=== PATIENT | female | born 1930 | race African-American/Black ===

== ENCOUNTER 2017-06-18 16:38 | Outpatient (CLI) | payer MEDICARE ==
--- NOTE | 2017-06-18 17:23 | RAD ---
TWO VIEWS OF THE NECK 06/18/17 COMPARISON: None. HISTORY: Airway obstruction when neck bends. FINDINGS: The airway appears patent on the frontal and lateral imaging. There is significant degenerative persaud ge involving the cervical spine especially the C5-6 and C6-7 levels with disc space narrowing, degen erative end plate change and anterior osteophyte formation. No prevertebral soft tissue swelling. No radiopaque foreign body seen. IMPRESSION: No acute findings. Cervical spine degenerative changes. If symptoms persists, perhaps a CT examinati on of the neck with IV contrast would be beneficial. POS: [facility]
[2017-06-18 17:27] LABS: #Basophils 0.1 thou/uL (0.0-0.2); #Eosinphils 0.1 thou/uL (0.0-0.7); #Lymphocytes 2.1 thou/uL (1.20-3.40); #Monocytes 0.5 thou/uL (0.11-0.59); #Neutrophils 2.6 thou/uL (1.40-6.50); %Basophils 1.1 % (0.0-1.0); %Eosinophils 1.7 % (0.0-10.0); %Lymphocytes 39.1 % (21.0-51.0); %Monocytes 9.5 % (0.0-10.0); %Neutrophils 48.7 % (42.0-75.0); Hemoglobin 9.2 g/dL (12.0-16.0); Mean Corpuscular HGB CONC 29.8 g/dL (32.0-36.0); Mean Corpuscular Hemoglobin 24.4 pg (27.0-31.0); Platelet Count 271 thou/uL (130-400); RBC Distribution Width 14.7 % (11.5-14.5); Red Blood Cell (RBC) Count 3.76 mill/uL (4.20-5.40); White Blood Cell (WBC) Count 5.3 thou/uL (4.8-10.8)
[2017-06-18 17:32] LABS: Bacteria/HPF Rare-Few HPF (None Seen); Bilirubin Negative (Negative); Blood, Urine Trace (Negative); Clarity c (Clear); Glucose, Urine (Dipstick) Negative (Negative); Leukocyte Trace (Negative); Nitrite Negative (Negative); Protein, Urine (Dipstick) Negative (Neg-Trace); Squamous Epithelial 0-3 HPF (0-3); WBC/HPF 0-3 HPF (0-3); pH, Urine 6.5 (5.0-9.0)
--- NOTE | 2017-06-18 17:35 | RAD ---
FRONTAL AND LATERAL IMAGING OF THE CHEST 06/18/17 COMPARISON: None. HISTORY: Respiratory obstruction, heart murmur. FINDINGS: There is no pneumothorax or pleural fluid. No focal consolidation, or alveolar edema. The lungs are mildly hyperinflated. There is mild increased density in the right paratracheal region, not seen on radiographs of the neck also performed 06/18/17, likely vascular in nature. No acute findings. IMPRESSION: No acute findings seen. POS: [facility]
[2017-06-18 18:04] LABS: ALT (SGPT) 13 U/L (8-55); AST (SGOT) 17 U/L (5-34); Albumin 4.2 g/dL (3.4-4.8); Alkaline Phosphatase 101 U/L (40-150); Anion Gap 16 mmol/L (10-20); BUN (Urea Nitrogen) 14 mg/dL (9.8-20.1); Bilirubin, Total 0.3 mg/dL (0.2-1.2); Calc. Creatinine Clearance 0 mL/min (70-130); Calcium 9.7 mg/dL (7.8-10.44); Carbon Dioxide 25 mmol/L (23-31); Chloride 103 mmol/L (98-107); Estimated GFR-MDRD 82; Globulin 3.4 g/dL (2.4-3.5); Glucose 90 mg/dL (83-110); Potassium 3.8 mmol/L (3.5-5.1); Protein, Total 7.6 g/dL (6.0-8.3); Sodium 140 mmol/L (136-145)
[2017-06-18 19:27] LABS: Hemoglobin A1c 5.7 % (4.0-6.0)
[2017-06-18 19:28] LABS: Anisocytosis SLIGHT = 6-15 cells (100X) (0-5/hpf); PLT Morphology Comment Appears Adequate; Poikilocytosis SLIGHT = 6-15 cells (100X) (0-5/hpf)
== END 2017-06-18 16:39 | disposition home or self-care (01) ==
LOC: MADRAD 16:38
PROVIDERS: ATTEND Family Medicine
DX: J98.8 Other specified respiratory disorders (principal); R01.1 Cardiac murmur, unspecified; R53.83 Other fatigue; R60.0 Localized edema; R23.1 Pallor; R73.02 Impaired glucose tolerance (oral); M47.812 Spondylosis without myelopathy or radiculopathy, cervical region
CPT/HCPCS: 36415; 70360; 71020; 80053; 81001; 82607; 83036; 83880; 84443; 85025

== ENCOUNTER 2017-10-01 14:08 | Outpatient (CLI) | payer MEDICARE ==
[2017-10-01 14:52] LABS: Cardiac Risk 2.6 (Less than 4.5)
== END 2017-10-01 14:09 | disposition home or self-care (01) ==
LOC: MADLAB 14:08
PROVIDERS: ATTEND Family Medicine
DX: E78.00 Pure hypercholesterolemia, unspecified (principal)
CPT/HCPCS: 36415; 80061

== ENCOUNTER 2017-10-13 13:58 | Outpatient (CLI) | payer MEDICARE ==
[2017-10-13 14:41] LABS: #Eosinphils 0.1 thou/uL (0.0-0.7); #Lymphocytes 1.8 thou/uL (1.20-3.40); #Monocytes 0.4 thou/uL (0.11-0.59); %Eosinophils 1.5 % (0.0-10.0); %Lymphocytes 41.1 % (21.0-51.0); %Monocytes 9.9 % (0.0-10.0); %Neutrophils 46.4 % (42.0-75.0); Hemoglobin 11.1 g/dL (12.0-16.0); MDiff Complete? YES; Manual Diff?? NO; Mean Corpuscular HGB CONC 31.8 g/dL (32.0-36.0); Mean Corpuscular Hemoglobin 29.4 pg (27.0-31.0); Mean Corpuscular Volume 92.7 fl (81.0-99.0); Mean Platelet Volume 5.7 fL (7.4-10.4); Platelet Count 175 thou/uL (130-400); RBC Distribution Width 19.5 % (11.5-14.5); Red Blood Cell (RBC) Count 3.78 mill/uL (4.20-5.40); White Blood Cell (WBC) Count 4.4 thou/uL (4.8-10.8)
[2017-10-13 14:42] LABS: Anisocytosis SLIGHT = 6-15 cells (100X) (0-5/hpf); Poikilocytosis SLIGHT = 6-15 cells (100X) (0-5/hpf)
[2017-10-13 14:43] LABS: Elliptocytes SLIGHT = 2-5 cells (100X) (0-1/hpf); Tear Drops SLIGHT = 2-5 cells (100X) (0-1/hpf)
== END 2017-10-13 13:59 | disposition home or self-care (01) ==
LOC: MADLAB 13:58
PROVIDERS: ATTEND Family Medicine
DX: D64.9 Anemia, unspecified (principal)
CPT/HCPCS: 36415; 85025

== ENCOUNTER 2018-03-09 15:41 | Outpatient (CLI) | payer MEDICARE ==
[2018-03-09 17:08] LABS: Bilirubin Negative (Negative); Blood, Urine Small (Negative); Clarity Clear (Clear); Glucose, Urine (Dipstick) Negative (Negative); Leukocyte Negative (Negative); Nitrite Negative (Negative); Protein, Urine (Dipstick) Negative (Neg-Trace); Urobilinogen 0.2 mg/dL (0.2-1.0); pH, Urine 6.5 (5.0-9.0)
== END 2018-03-09 15:42 | disposition home or self-care (01) ==
LOC: MADLAB 15:41
PROVIDERS: ATTEND Family Medicine
DX: E78.00 Pure hypercholesterolemia, unspecified (principal); R73.02 Impaired glucose tolerance (oral); R31.21 Asymptomatic microscopic hematuria; M81.0 Age-related osteoporosis without current pathological fracture; D50.9 Iron deficiency anemia, unspecified; I10 Essential (primary) hypertension
CPT/HCPCS: 81003

== ENCOUNTER 2018-11-12 11:40 | Emergency (ER) | payer MEDICARE ==
--- NOTE | 2018-11-12 14:36 | RAD ---
AP PELVIS 1 VIEW: HISTORY: Pelvic injury. FINDINGS: Sacral alae and pelvic rings are intact. Degenerative changes lower lumbar spine and hips. No displ aced fractures are evident. Phleboliths project over the pelvis. IMPRESSION: No acute osseous abnormalities are demonstrated. POS: [facility]
--- NOTE | 2018-11-12 14:59 | RAD ---
LEFT HIP 2 VIEWS: HISTORY: Left hip pain. FINDINGS: Mild joint space narrowing, osteophytosis, and subchondral sclerosis. No acute fracture or dislocati on. Femoral head contour is maintained. IMPRESSION: Degenerative changes left hip. POS: [facility]
== END 2018-11-12 13:46 | disposition home or self-care (01) ==
LOC: MADERS 11:40
DX: M25.552 Pain in left hip (principal); W01.0XXA Fall on same level from slipping, tripping and stumbling without subsequent striking against object, initial encounter
CPT/HCPCS: 72170

== ENCOUNTER 2019-11-04 18:33 | Emergency (ER) | payer MEDICARE ==
[2019-11-04] MEDS ORDERED: Oseltamivir 75 MG CAP ONE (19:17)
== END 2019-11-04 19:30 | disposition home or self-care (01) ==
LOC: MADERS 18:33
DX: J10.1 Influenza due to other identified influenza virus with other respiratory manifestations (principal); I10 Essential (primary) hypertension; Z79.899 Other long term (current) drug therapy
CPT/HCPCS: 87804; 99283

== ENCOUNTER 2021-03-08 08:32 | Emergency (ER) | payer MEDICARE ==
[2021-03-08] MEDS ORDERED: Ketorolac Tromethamine 30 MG/ML VIAL ONE (09:01)
[2021-03-08] MEDS ORDERED: Ondansetron PF 4 MG/2 ML Vial ONE (10:19)
[2021-03-08] MEDS ORDERED: Morphine 4 MG/ML VIAL ONE (10:19)
[2021-03-08 10:56] LABS: #Basophils 0.1 thou/uL (0.0-0.2); #Lymphocytes 0.9 thou/uL (1.20-3.40); #Monocytes 0.5 thou/uL (0.11-0.59); #Neutrophils 3.8 thou/uL (1.40-6.50); %Basophils 1.1 % (0.0-1.0); %Eosinophils 0.2 % (0.0-10.0); %Monocytes 8.8 % (0.0-10.0); %Neutrophils 72.9 % (42.0-75.0); Anisocytosis SLIGHT = 6-15 cells (100X) (0-5/hpf); Hemoglobin 8.3 g/dL (12.0-16.0); Hypochromia SLIGHT = 6-15 cells (100X) (0-5/hpf); MDiff Complete? YES; Mean Corpuscular HGB CONC 28.2 g/dL (32.0-36.0); Mean Corpuscular Hemoglobin 21.6 pg (27.0-31.0); Mean Corpuscular Volume 76.6 fL (78.0-98.0); Microcytosis SLIGHT = 6-15 cells (100X) (0-5/hpf); Platelet Count 280 thou/uL (130-400); Polychromasia SLIGHT = 2-3 cells (100X) (0-2/hpf); Red Blood Cell (RBC) Count 3.85 mill/uL (4.20-5.40); White Blood Cell (WBC) Count 5.2 thou/uL (4.8-10.8)
[2021-03-08 10:58] LABS: Anion Gap 15 mmol/L (10-20); BUN (Urea Nitrogen) 13 mg/dL (9.8-20.1); Calc. Creatinine Clearance 0 mL/min (70-130); Calcium 9.1 mg/dL (7.8-10.44); Carbon Dioxide 26 mmol/L (23-31); Chloride 103 mmol/L (98-107); Glucose 98 mg/dL (83-110); Potassium 4.1 mmol/L (3.5-5.1); Sodium 140 mmol/L (136-145)
== END 2021-03-08 12:26 | disposition short-term general hospital (02) ==
LOC: MADERS 08:32
DX: S72.002A Fracture of unspecified part of neck of left femur, initial encounter for closed fracture (principal); X50.1XXA Overexertion from prolonged static or awkward postures, initial encounter
CPT/HCPCS: 72192; 80048; 85025; 96372; 96374; 96375; J1885; J2270; J2405